=== PATIENT | male | born 1945 | race Caucasian/White ===

== ENCOUNTER 2018-04-27 11:04 | Inpatient (IN) | payer BC ==
[~2018-04-27] VITALS: Ht 182.9 cm; Wt 81.6 kg
[~2018-04-27 11:04] MED LIST: GLU500 PO; LIP80 PO
[2018-04-27] MEDS ORDERED: NACL 0.9% 1,000 ML IV ONE (11:13)
[2018-04-27] MEDS ORDERED: MORPHINE 4 MG/ML INJ. SYRINGE IVP ONE ×3 (11:15→12:45)
[2018-04-27] MEDS ORDERED: ONDANSETRON HCL 4 MG/2 ML VIAL IVP ONE (11:15)
[2018-04-27 11:19] VITALS: BP_SYST 174
[2018-04-27 11:53] LABS: BASOPHILS # (AUTO) 0.1 K/uL (0.0-0.2); BASOPHILS % (AUTO) 0.8 % (0.0-2.0); EOSINOPHILS # (AUTO) 0.1 K/uL (0.0-0.4); EOSINOPHILS % (AUTO) 0.6 % (0.0-4.0); HEMATOCRIT 45.3 % (36-54); HEMOGLOBIN 15.6 g/dL (14.0-18.0); LYMPHOCYTES # (AUTO) 2.5 K/uL (1.0-5.5); LYMPHOCYTES % (AUTO) 18.5 % (20.5-51.5); MEAN CORPUSCULAR HEMOGLOBIN 31 pg (27-31); MEAN CORPUSCULAR HGB CONC 34 % (32-36); MEAN CORPUSCULAR VOLUME 90 fL (79.0-98.0); MONOCYTES # (AUTO) 0.7 K/uL (0.0-1.0); MONOCYTES % (AUTO) 5.3 % (1.7-9.3); NEUTROPHILS % (AUTO) 74.8 % (40.0-70.0); PLATELET COUNT (AUTO) 330 K/uL (130-430); RED BLOOD CELL COUNT(AUTO) 5.02 MIL/uL (4.2-6.2); RED CELL DISTRIBUTION WIDTH 12.6 % (9.0-15.0); WHITE BLOOD COUNT (AUTO) 13.4 K/uL (4.8-10.8)
[2018-04-27 12:00] LABS: ANION GAP 11 (5-15); CHLORIDE 105 mmol/L (98-107); CREATININE 1.01 mg/dL (0.55-1.30); GLUCOSE 206 mg/dL (70-99); POTASSIUM 4.1 mmol/L (3.5-5.1); SODIUM SERUM 143 mmol/L (136-145); UREA NITROGEN, BLOOD 21 mg/dL (8-21)
[2018-04-27 12:02] LABS: PROTHROMBIN TIME 10.5 SECS (9.5-12.5)
[2018-04-27 12:06] LABS: ALANINE AMINOTRANSFERASE 100 U/L (12-78); ALBUMIN 3.8 g/dL (3.4-4.8); AMYLASE 53 U/L (0-100); ASPARTATE AMINOTRANSFERASE 25 U/L (10-37); LIPASE 118 U/L (73-393); TOTAL BILIRUBIN 0.7 mg/dL (0.0-1.0)
[2018-04-27 12:32] LABS: BILIRUBIN,URINE NEGATIVE (NEGATIVE); BLOOD, URINE 2+ (NEGATIVE); CLARITY/URINE SLIGHTLY HAZY (CLEAR); COLOR,URINE YELLOW (YELLOW); GLUCOSE,URINE TRACE (NEGATIVE); KETONES,URINE NEGATIVE (NEGATIVE); LEUKOCYTE ESTERASE ,URINE NEGATIVE (NEGATIVE); NITRITE, URINE NEGATIVE (NEGATIVE); PROTEIN URINE NEGATIVE (NEGATIVE); UROBILINOGEN,URINE 0.2 (0.2-1.0)
[2018-04-27 12:42] LABS: BACTERIA,URINE RARE /HPF (None Seen); MUCUS,URINE 1+ /LPF (None Seen); WBC,URINE 0-3 /HPF (0-3)
[2018-04-27] MEDS ORDERED: cefTRIAXone 2 GM VIAL ONE (13:23)
[2018-04-27] MEDS ORDERED: PRO40 PO (13:38)
[2018-04-27 14:22] VITALS: BP_SYST 170
[2018-04-27] MEDS ORDERED: METOCLOPRAMIDE HCL 10 MG/2 ML VIAL IVP PRN (14:45)
[2018-04-27] MEDS ORDERED: MORPHINE 4 MG/ML INJ. SYRINGE IVP PRN (14:45)
[2018-04-27] MEDS ORDERED: DEXTROSE 50% JECT 50 ML DISP.SYRIN IVP PRN (14:45)
[2018-04-27] MEDS ORDERED: cloNIDine HCL 0.1 MG TABLET PO PRN (14:45)
[2018-04-27] MEDS ORDERED: ENALAPRILAT DIHYDRATE 1.25 MG/ML VIAL IVP PRN (14:45)
[2018-04-27] MEDS ORDERED: ACETAMINOPHEN 325 MG TABLET PO PRN (14:45)
[2018-04-27] MEDS ORDERED: hydrALAZINE HCL 20 MG/ML VIAL IVP PRN (14:45)
[2018-04-27] MEDS ORDERED: ONDANSETRON HCL 4 MG/2 ML VIAL IVP PRN (14:45)
[2018-04-27] MEDS: MORPHINE 4 MG/ML INJ. SYRINGE IVP PRN ×2 (15:01→21:00)
[2018-04-27 16:25] VITALS: BP_SYST 155
[2018-04-27] MEDS: INSULIN REGULAR, HUMAN 100 UNITS/ML, 10 ML VIAL (novoLIN R) SUBCUT PRN (17:23)
[2018-04-27] MEDS: NACL 0.9% 1,000 ML IV SCH (18:36)
[2018-04-27 19:55] VITALS: BP_SYST 149
[2018-04-28 00:38] VITALS: BP_SYST 143
[2018-04-28] MEDS: INSULIN REGULAR, HUMAN 100 UNITS/ML, 10 ML VIAL (novoLIN R) SUBCUT PRN ×3 (01:05→11:16)
[2018-04-28] MEDS: MORPHINE 4 MG/ML INJ. SYRINGE IVP PRN ×2 (03:22→14:52)
[2018-04-28 07:55] VITALS: BP_SYST 128
[2018-04-28] MEDS: NACL 0.9% 1,000 ML IV SCH (09:51)
[2018-04-28] MEDS ORDERED: PANTOPRAZOLE SODIUM 40 MG/VIAL (PROTONIX) IVP ONE (11:00)
[2018-04-28 12:00] VITALS: BP_SYST 121
[2018-04-28] MEDS ORDERED: cefTRIAXone 1 GM IVPB PREMIX 50 ML IV SCH (13:00)
[2018-04-28 16:00] VITALS: BP_SYST 129
[2018-04-28] MEDS ORDERED: CIPR-172 PO (17:51)
[2018-04-28] MEDS ORDERED: HYDR-1189 PO (17:52)
[2018-04-28] MEDS ORDERED: TAMS-11 PO (17:52)
[2018-04-28 17:58] VITALS: BP_SYST 129
[2018-04-29] MEDS ORDERED: PANTOPRAZOLE SODIUM 40 MG/VIAL (PROTONIX) IVP SCH (09:00)
== END 2018-04-28 18:20 | disposition home or self-care (01) | DRG 694 ==
LOC: SED 11:04 → SMU 13:55
PROVIDERS: ADMIT Internal Medicine Hospice and Palliative Medicine; ATTEND Internal Medicine Hospice and Palliative Medicine
DX: N13.2 Hydronephrosis with renal and ureteral calculous obstruction (principal); E11.9 Type 2 diabetes mellitus without complications; R16.1 Splenomegaly, not elsewhere classified; N12 Tubulo-interstitial nephritis, not specified as acute or chronic; N28.1 Cyst of kidney, acquired; I10 Essential (primary) hypertension; R94.5 Abnormal results of liver function studies; E78.5 Hyperlipidemia, unspecified; Z88.2 Allergy status to sulfonamides; Z79.899 Other long term (current) drug therapy; Z90.49 Acquired absence of other specified parts of digestive tract
CPT/HCPCS: 36415; 71045; 74018; 76700-TC; 80053; 81000-TC; 82150-TC; 82550-TC; 82962; 83605; 83690-TC; 83880; 84484; 85025; 85610-TC; 85730-TC; 87040-TC; 87081; 93005; 96365; 96375; 96376; 99285; C9113; J0696; J1815; J2270; J2405; J7030